=== PATIENT | male | born 1955 | race Caucasian/White ===

== ENCOUNTER 2022-10-10 12:05 | Inpatient (IN) | payer OTHER, MEDICAID ==
[~2022-10-10 12:05] MED LIST: Iopamidol 370 76% 100 ML VIAL ONE
[2022-10-10] MEDS ORDERED: Norepinephrine 4 MG/4 ML VIAL ONE ×2 (12:49)
[2022-10-10] MEDS ORDERED: Heparin 10,000 UNITS/ 10 ML VIAL ONE ×2 (13:04→13:53)
[2022-10-10] MEDS ORDERED: Lidocaine 1% (PF) 30 ML VIAL ONE (13:04)
[2022-10-10] MEDS ORDERED: Heparin 25,000 units/D5W 500 ML ONE ×2 (13:12→14:20)
[2022-10-10 13:23] LABS: Hemoglobin 16.8 g/dL (14.0-18.0); Mean Corpuscular HGB CONC 33.5 g/dL (32.0-36.0); Mean Corpuscular Hemoglobin 30.9 pg (27.0-31.0); Mean Corpuscular Volume 92.4 fl (78.0-98.0); Mean Platelet Volume 9.2 fL (7.4-10.4); Platelet Count 212 10x3/uL (130-400); RBC Distribution Width 13.3 % (11.5-14.5); Red Blood Cell (RBC) Count 5.43 mill/uL (4.70-6.10); White Blood Cell (WBC) Count 24.2 10x3/uL (4.8-10.8)
[2022-10-10 13:37] LABS: Band 14 % (5-11); Eosinophils 1 % (0-10); Lymphocytes 30 % (21-51); MDiff Complete? YES; Metamyelocyte 3 % (0-0); Monocytes 5 % (0-10); Myelocyte 1 % (0-0); Neutrophil 46 % (42-75); Platelet Morphology Comment Appears Adequate; RBC Morphology Normal
[2022-10-10 13:49] LABS: ALT (SGPT) 66 U/L (8-55); AST (SGOT) 86 U/L (5-34); Albumin 3.1 g/dL (3.4-4.8); Alkaline Phosphatase 108 U/L (40-110); Anion Gap 21 mmol/L (10-20); BUN (Urea Nitrogen) 13 mg/dL (8.4-25.7); Bilirubin, Total 0.5 mg/dL (0.2-1.2); Calc. Creatinine Clearance 0 mL/min (70-130); Calcium 7.7 mg/dL (7.8-10.44); Carbon Dioxide 19 mmol/L (23-31); Chloride 108 mmol/L (98-107); Estimated GFR 63; Globulin 2.2 g/dL (2.4-3.5); Glucose 384 mg/dL (80-115); Potassium 2.8 mmol/L (3.5-5.1); Protein, Total 5.3 g/dL (5.8-8.1); Sodium 145 mmol/L (136-145)
[2022-10-10] MEDS ORDERED: Aggrastat 12.5 MG/250 ML 250 ML ONE (13:53)
[2022-10-10 14:10] LABS: CKMB 47.3 ng/mL (0-6.6)
[2022-10-10] MEDS ORDERED: TICAGRELOR 90 MG TABLET ONE (14:21)
[2022-10-10] MEDS ORDERED: Sodium Bicarb 50 MEQ/50 ML VIAL ONE ×3 (15:27→15:59)
[2022-10-10 15:28] LABS: Actual Bicarbonate (HCO3a) 22.5 mEq/L (22-28); Base Excess (BEa) -7.1 mEq/L (-2.0 to +3.0); Calcium, Ionized (arterial) 1.08 mmol/L (1.12-1.30); Carboxyhemoglobin (COHb) 0.6 gm% (0.0-3.0); Hematocrit-ABG 53 % (42.0-52.0); Hemoglobin (Hb) 17.9 g/dL (14.0-18.0); Potassium - ABG Lab 3.22 mmol/L (3.70-5.30)
[2022-10-10 15:29] LABS: CO2 Tension 60.8 mmHg (35.0-45.0); O2 Tension (PaO2), arterial 45.1 mmHg (> 80.0); Puncture Site LBA; pH, Arterial 7.186 (7.35-7.45)
[2022-10-10 15:31] VITALS: TEMP 97.5
[2022-10-10 15:32] VITALS: BP 63/57
[2022-10-10 15:38] LABS: #Basophils 0.1 thou/uL (0.0-0.2); #Eosinphils 0.1 thou/uL (0.0-0.7); #Lymphocytes 2.4 thou/uL (1.20-3.40); #Monocytes 0.7 thou/uL (0.11-0.59); #Neutrophils 13.8 thou/uL (1.40-6.50); %Basophils 0.3 % (0.0-1.0); %Eosinophils 0.3 % (0.0-10.0); %Lymphocytes 14.1 % (21.0-51.0); %Monocytes 4.2 % (0.0-10.0); %Neutrophils 81.1 % (42.0-75.0); Mean Corpuscular HGB CONC 33.6 g/dL (32.0-36.0); Mean Corpuscular Volume 92.4 fl (78.0-98.0); Mean Platelet Volume 9.1 fL (7.4-10.4); Platelet Count 253 10x3/uL (130-400); RBC Distribution Width 13.4 % (11.5-14.5); Red Blood Cell (RBC) Count 5.81 mill/uL (4.70-6.10)
[2022-10-10 15:49] VITALS: BMI 27.0
[2022-10-10] MEDS ORDERED: Fentanyl BOLUS 250 ML IVPB PRN (16:00)
[2022-10-10] MEDS ORDERED: Fentanyl CADD 100 ML IV SCH (16:00)
[2022-10-10] MEDS ORDERED: Lorazepam 2 MG/ML VIAL SLOW IVP PRN (16:00)
[2022-10-10] MEDS ORDERED: Morphine 2 MG/ML VIAL SLOW IVP PRN (16:00)
[2022-10-10] MEDS ORDERED: Propofol BOLUS 1,000 MG/100 ML VIAL IV PRN (16:00)
[2022-10-10] MEDS ORDERED: DISCONTINUE PREVIOUS NARCOTIC PAIN MEDICATIONS AND BENZODIAZEPINES FS SCH (16:00)
[2022-10-10] MEDS ORDERED: Propofol 1,000 MG/100 ML VIAL IV PRN (16:00)
[2022-10-10] MEDS ORDERED: Sodium Bicarbonate 150 MEQ in Dextrose 5% in Water 1,000 ML IV SCH (16:00)
[2022-10-10] MEDS ORDERED: NOREPINEPHRINE 8 MG/250 ML-D5W 250 ML IVPB SCH (16:15)
[2022-10-10] MEDS ORDERED: Vecuronium 10 MG VIAL IVP SCH (16:15)
[2022-10-10] MEDS ORDERED: Heparin 10,000 UNITS/ 10 ML VIAL SLOW IVP SCH (16:15)
[2022-10-10] MEDS ORDERED: Heparin 25,000 units/D5W 500 ML IV SCH (16:15)
[2022-10-10] MEDS ORDERED: Heparin 10,000 UNITS/1 ML VIAL 50,000 UNITS in Dextrose 5% in Water 1,000 ML FS SCH (16:15)
[2022-10-10] MEDS ORDERED: Sodium Chloride 0.9% 500 ML IV SCH ×2 (16:15→16:45)
[2022-10-10] MEDS ORDERED: Vecuronium 10 MG VIAL IVP PRN (16:18)
[2022-10-10 16:19] LABS: CKMB 441.1 ng/mL (0-6.6)
[2022-10-10 16:23] LABS: Anion Gap 20 mmol/L (10-20); BUN (Urea Nitrogen) 14 mg/dL (8.4-25.7); Calc. Creatinine Clearance 64 mL/min (70-130); Calcium 7.3 mg/dL (7.8-10.44); Carbon Dioxide 20 mmol/L (23-31); Chloride 109 mmol/L (98-107); Estimated GFR 67; Glucose 327 mg/dL (80-115); Potassium 3.3 mmol/L (3.5-5.1); Sodium 146 mmol/L (136-145)
[2022-10-10 16:23] LABS: Troponin I 234.972 ng/mL (< 0.028)
[2022-10-10] MEDS ORDERED: DOPamine 400 MG/D5W 250 ML 250 ML ONE (16:23)
[2022-10-10 16:30] LABS: Lactic Acid 10.9 mmol/L (0.5-2.2)
[2022-10-10] MEDS ORDERED: Dextrose 5% in Water 1,000 ML IV PRN (16:30)
[2022-10-10] MEDS ORDERED: Dextrose 50% Abboject 50 ML SYRINGE IVP PRN (16:30)
[2022-10-10] MEDS ORDERED: HumaLOG 300 UNITS/3 ML VIAL SC PRN (16:30)
[2022-10-10 16:39] LABS: Actual Bicarbonate (HCO3a) 24.9 mEq/L (22-28); Calcium, Ionized (arterial) 0.96 mmol/L (1.12-1.30); Carboxyhemoglobin (COHb) 0.6 gm% (0.0-3.0); Hematocrit-ABG 37 % (42.0-52.0); Hemoglobin (Hb) 12.7 g/dL (14.0-18.0); Potassium - ABG Lab 3.32 mmol/L (3.70-5.30); pH, Arterial 7.206 (7.35-7.45)
[2022-10-10 16:40] LABS: CO2 Tension 64.4 mmHg (35.0-45.0); O2 Tension (PaO2), arterial 47.1 mmHg (> 80.0); Puncture Site LRA
[2022-10-10] MEDS ORDERED: EPINEPHrine 1 MG/10 ML Abboject SYRINGE IVP SCH (16:45)
[2022-10-10] MEDS ORDERED: Sodium Chloride 0.9% 1,000 ML IV SCH (16:45)
[2022-10-10] MEDS ORDERED: EPINEPHrine 4 MG in Dextrose 5% in Water 250 ML IVP SCH (16:45)
[2022-10-10] MEDS ORDERED: DOPamine 400 MG/D5W 250 ML 250 ML IVPB SCH (16:45)
[2022-10-10] MEDS ORDERED: Aggrastat 12.5 MG/250 ML 250 ML IVPB SCH (18:00)
[2022-10-10] MEDS ORDERED: TICAGRELOR 90 MG TABLET PO SCH (21:00)
[2022-10-10] MEDS ORDERED: Atorvastatin Calcium 40 MG TAB PO SCH (21:00)
[2022-10-11] MEDS ORDERED: Aspirin Chewable 81 MG TAB PO SCH (09:00)
== END 2022-10-10 18:41 | disposition expired | DRG 215 ==
LOC: ERS 12:05 → CCL 13:12 → CCU 13:16
PROVIDERS: ADMIT Internal Medicine Cardiovascular Disease; ATTEND Internal Medicine Cardiovascular Disease
PROC: 027035Z Dilation of Coronary Artery, One Artery with Two Drug-eluting Intraluminal Devices, Percutaneous Approach (ICD-10-PCS; principal; 2022-10-10)
PROC: 02HA3RZ Insertion of Short-term External Heart Assist System into Heart, Percutaneous Approach (ICD-10-PCS; 2022-10-10)
PROC: 5A0221D Assistance with Cardiac Output using Impeller Pump, Continuous (ICD-10-PCS; 2022-10-10)
PROC: 5A1935Z Respiratory Ventilation, Less than 24 Consecutive Hours (ICD-10-PCS; 2022-10-10)
PROC: 3E033PZ Introduction of Platelet Inhibitor into Peripheral Vein, Percutaneous Approach (ICD-10-PCS; 2022-10-10)
PROC: 4A023N7 Measurement of Cardiac Sampling and Pressure, Left Heart, Percutaneous Approach (ICD-10-PCS; 2022-10-10)
PROC: B2111ZZ Fluoroscopy of Multiple Coronary Arteries using Low Osmolar Contrast (ICD-10-PCS; 2022-10-10)
PROC: B2151ZZ Fluoroscopy of Left Heart using Low Osmolar Contrast (ICD-10-PCS; 2022-10-10)
PROC: 3E033XZ Introduction of Vasopressor into Peripheral Vein, Percutaneous Approach (ICD-10-PCS; 2022-10-10)
DX: I21.09 ST elevation (STEMI) myocardial infarction involving other coronary artery of anterior wall (principal); I50.21 Acute systolic (congestive) heart failure; J96.01 Acute respiratory failure with hypoxia; E87.20 Acidosis, unspecified; R57.0 Cardiogenic shock; I25.10 Atherosclerotic heart disease of native coronary artery without angina pectoris; I11.0 Hypertensive heart disease with heart failure; I49.01 Ventricular fibrillation; I46.2 Cardiac arrest due to underlying cardiac condition; E87.6 Hypokalemia; Z98.890 Other specified postprocedural states; Z79.899 Other long term (current) drug therapy
CPT/HCPCS: 31500; 33990; 36415; 36416; 36600; 51702; 71045; 80053; 82553; 82805; 83605; 84484; 85025; 85347; 87086; 92928; 92941; 93005; 93306; 93458; 94002; 96374; C1769; C1874; C1887; C9600; C9606; J0171; J1265; J1644; J1815; J2001; J2060; J3246; J7030; J7050; J7070; Q9967